=== PATIENT | male | born 1970 | race Caucasian/White ===

== ENCOUNTER 2021-05-08 15:35 | Emergency (ER) | payer MEDICAID ==
[~2021-05-08] VITALS: Ht 190.5 cm; Wt 111.0 kg
[~2021-05-08 15:35] MED LIST: HYDR12.517 PO
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
[2021-05-08] MEDS ORDERED: L.E.T SOLUTION TP ONE ×2 (15:55→16:00)
--- NOTE | 2021-05-08 15:58 | NUR ---
[employer] APPLIED TO THE L[facility].
[2021-05-08] MEDS ORDERED: HYDROCHLOROTHIAZIDE 25 MG TABLET PO ONE (17:00)
--- NOTE | 2021-05-08 17:16 | NUR ---
PT. WAS MEDICATED FOR HIS BLOOD PRESSURE ORDERED.
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
--- NOTE | 2021-05-08 18:22 | NUR ---
DISCUSSED PT.'S BLOOD PRESSURE WITH SUSAN LINDQUIST.
[2021-05-08] MEDS ORDERED: LABETALOL 5MG/ML, 20ML ONE (18:23)
--- NOTE | 2021-05-08 18:31 | NUR ---
PT. HAS C/O [place] PAIN. DR. MOODY ORDERED 20 MG IV LABETALOL. IV ACCESS ESTABLISHED AND MEDICATIONS WERE GIVEN ORDERED.
[2021-05-08] MEDS ORDERED: LABETALOL 5MG/ML, 20ML IVPush ONE (19:00)
--- NOTE | 2021-05-08 19:05 | NUR ---
REPORT GIVEN. DISCUSSED VITALS WITH DR. MOODY.
[2021-05-08] MEDS ORDERED: LORazepam 2 MG/ML, 1ML ONE (19:11)
[2021-05-08] MEDS ORDERED: LORazepam 2 MG/ML, 1ML IVPush ONE (19:30)
[2021-05-08 19:41] VITALS: BP 171/113
--- NOTE | 2021-05-08 19:52 | NUR ---
Patient/Caregiver given discharge instructions and they have confirmed that they understand the instructions. Patient ambulatory with steady gait. NAD, all questions answered appropriately, denies additional needs at this time. No personal belongings left in room after discharge.
== END 2021-05-08 19:53 | disposition home or self-care (01) ==
LOC: ED 17:47
DX: S01.01XA Laceration without foreign body of scalp, initial encounter (principal); F17.210 Nicotine dependence, cigarettes, uncomplicated; I10 Essential (primary) hypertension; Z76.0 Encounter for issue of repeat prescription; Y04.0XXA Assault by unarmed brawl or fight, initial encounter; Y93.89 Activity, other specified; Y92.89 Other specified places as the place of occurrence of the external cause; Y99.8 Other external cause status
CPT/HCPCS: 12001; 96374; 96375; 99285; J2060

== ENCOUNTER 2021-05-18 07:57 | Emergency (ER) | payer MEDICAID ==
[~2021-05-18] VITALS: Ht 190.5 cm; Wt 103.2 kg
[2021-05-18 08:01] VITALS: BP 190/121
--- NOTE | 2021-05-18 08:53 | NUR ---
PT AMBULATED TO [place] AREA, STEADY GAIT
--- NOTE | 2021-05-18 08:53 | NUR ---
PT REC'VD [facility] INSTRUCTIONS AND EDUCATION. PT HAD NO FURTHER QUESTIONS.
== END 2021-05-18 09:13 ==
LOC: ED 08:17
DX: S01.01XD Laceration without foreign body of scalp, subsequent encounter (principal); X58.XXXD Exposure to other specified factors, subsequent encounter
CPT/HCPCS: 99281